=== PATIENT | male | born 1955 | race Caucasian/White ===

== ENCOUNTER → 2019-05-05 | Day surgery (SDC) | payer BC ==
--- NOTE | 2019-05-03 10:38 | NUR ---
CLARIFIED WITH IRMA SOLIMAN RN ABOUT WHEN TO STOP TAKING ASPIRIN 325MG PO DAILY. RICKI SOLIMAN RN STATED TO HOLD ASPIRIN UNTIL DAY AFTER PROCEDURE 05/06/19.
[2019-05-03 10:51] LABS: BASOPHILS # (AUTO) 0.1 (0.0-0.1); BASOPHILS % 1.3 % (0.0-1.0); EOSINOPHILS # (AUTO) 0.3 (0.0-0.4); EOSINOPHILS % 4.1 % (0.0-6.0); HEMATOCRIT 41.3 % (38.2-49.6); HEMOGLOBIN 13.4 g/dL (14.0-18.0); LYMPHOCYTES % 26.4 % (18.0-39.1); MEAN CORPUSCULAR HGB CONC 32.4 g/dL (31-35); MEAN CORPUSCULAR VOLUME 92.6 fL (81-99); MONOCYTES # (AUTO) 0.6 (0.2-0.8); MONOCYTES % 7.6 % (4.4-11.3); NEUTROPHILS # (AUTO) 4.6 (2.1-6.9); NEUTROPHILS % 60.1 % (38.7-80.0); PLATELET COUNT 268 x10e3/uL (140-360); RED BLOOD COUNT 4.46 x10e6/uL (4.3-5.7); RED CELL DISTRIBUTION WIDTH 13.2 % (11.7-14.4)
[2019-05-03 11:11] LABS: INR 0.84
[2019-05-03 11:15] LABS: ANION GAP 15.4 mmol/L (8-16); BLOOD UREA NITROGEN 12 mg/dL (7-26); BUN/CREATININE RATIO 12 (6-25); CALCIUM 9.7 mg/dL (8.4-10.2); CARBON DIOXIDE 27 mmol/L (22-29); CHLORIDE 103 mmol/L (98-107); EST GLOMERULAR FILTRATION RATE > 60 ML/MIN (60-); GLUCOSE 109 mg/dL (74-118); POTASSIUM 4.4 mmol/L (3.5-5.1); SODIUM 141 mmol/L (136-145)
[~2019-05-05] VITALS: Ht 185.4 cm; Wt 84.8 kg
[~2019-05-05] MED LIST: ALBUTEROL0.63 MG/3; AMIODARONE HCL200 MG PO; ASPIRIN325 MG PO; CIPRO500 MG PO; DILTIAZEM HCL120 MG PO; DOXYCYCLINE HY100 MG PO; LIDOCAINE HCL 2% LOCAL 20 ML VIAL ONE; LISINOPRIL10 MG PO; METOPROLOL TAR100 MG PO; SYMBICORT 16010.2 GM INH; VENTOLIN HFA18 GM INH; XARELTO20 MG PO
--- OUTSIDE RECORDS SUMMARY | 2019-05-05 06:32 | XMS REPORT | Continuity of Care Document ---
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 Phone urturn Information Layer[employer]ault Unavailable Unavailable Problems Problem Status Onset Date Classification Date Reported Comments Source History of hypertension 04/17/2019 Diagnosis 04/20/2019 [facility] Ex-smoker 04/17/2019 Diagnosis 04/20/2019 [facility] Dental abscess 04/17/2019 Diagnosis 04/20/2019 [facility] Hypertensive Disorder 04/17/2019 Problem 04/20/2019 [facility] Atrial Fibrillation 04/17/2019 Problem 04/20/2019 [facility] Chronic Obstructive Lung Disease 04/17/2019 Problem 04/20/2019 [facility] Tuberculosis screening 04/19/2017 Diagnosis 04/19/2017 [facility] Medications Medication Details Route Status Patient Instructions Ordering Provider Order Date Source 24 HR Diltiazem Hydrochloride 240 MG Extended Release Oral Capsule [Dilt] DILT-XR 240 mg capsule, extended release Active [facility] Lisinopril 20 MG Oral Tablet lisinopril 20 mg tablet Active [facility] Budesonide 0.16 MG/ACTUAT / formoterol fumarate 0.0045 MG/ACTUAT Metered Dose Inhaler Symbicort 160 mcg-4.5 mcg/actuation HFA aerosol inhaler Active [facility] Purified Protein Derivative of Tuberculin 50 UNT/ML Injectable Solution [Tubersol] Tubersol 5 tub. unit/0.1 mL intradermal injection solution Inject 0.1 mL by intradermal route. Active [facility] 200 ACTUAT Albuterol 0.09 MG/ACTUAT Metered Dose Inhaler [Ventolin] Ventolin HFA 90 mcg/actuation aerosol inhaler Active [facility] Amoxicillin 875 MG / Clavulanate 125 MG Oral Tablet [Augmentin] Augmentin 875 mg-125 mg tablet Take 1 tablet every 12 hours by oral route for 7 days. Active [facility] Ibuprofen 800 MG Oral Tablet ibuprofen 800 mg tablet Take 1 tablet 3 times a day by oral route for 7 days. Active [facility] [id number] 200 ACTUAT Albuterol 0.09 MG/ACTUAT Metered Dose Inhaler [Ventolin] Ventolin HFA 90 mcg/actuation aerosol inhaler Active [facility] Allergies, Adverse Reactions, Alerts No Known Medication Allergies Immunizations Immunization Date Given Site Status Last Updated Comments Source influenza, injectable, quadrivalent 06/29/2018 completed [facility] pneumococcal polysaccharide PPV23 03/29/2018 completed [facility] pneumococcal conjugate PCV 13 03/29/2017 completed [facility] influenza, injectable, quadrivalent 07/14/2016 completed [facility] Results No Data Provided for This Section Pathology Reports No Data Provided for This Section Diagnostic Reports No Data Provided for This Section Consultation Notes No Data Provided for This Section Discharge Summaries No Data Provided for This Section History and Physicals No Data Provided for This Section Vital Signs Vital Sign Value Date Comments Source Diastolic (mm Hg) 78 04/17/2019 [facility] Height 73 04/17/2019 [facility] Systolic (mm Hg) 141 04/17/2019 [facility] Weight 185 04/17/2019 [facility] Encounters Location Location Details Encounter Type Encounter Number Reason For Visit Attending Provider ADM Date DC Date Status Source [place] [facility] - [id number] NORAH GallardoP-C: [address] [place] [address], Ph. [id number] Gonzalez Pastrana 04/19/2017 [facility] [place] [facility] - [id number] NORAH PatinoP-C: [address] [place] [address], Ph. [id number] Dee Dee Escalante 04/17/2019 [facility] [place] [facility] - [id number] VIVI Patino-C: [address] [place] [address], Ph. [id number] Nkechinyere Orisakwe 04/17/2019 [facility] Procedures No Data Provided for This Section Assessment and Plan No Data Provided for This Section Plan of Care No Data Provided for This Section Social History No Data Provided for This Section Family History No Data Provided for This Section Advance Directives No Data Provided for This Section Functional Status No Data Provided for This Section
--- OUTSIDE RECORDS SUMMARY | 2019-05-05 06:32 | XMS REPORT | Encounter Summary ---
Author Organization Unknown Address [address] [place] [address] Phone [phone] Reason for Visit Screening - TB Instructions 1. Tuberculosis screening Tubersol 5 tub. unit/0.1 mL intradermal injection solution PPD (purified protein derivative), skin test - Patient was advised to follow-up with [facility] within 48-72 hours. Discussion Note: None recorded. Patient educational handouts: No information available. Plan of Care Patient Instructions RTC in 48-72 for reading. see vis handout for any questions. Reminders Provider Appointments None recorded. Lab PPD (Purified Protein Derivative), Skin Test 04/19/2017 [facility] Referral None recorded. Procedures None recorded. Surgeries None recorded. Imaging None recorded. Medications Name Start Date DILT-XR 240 mg capsule, extended release lisinopril 20 mg tablet Symbicort 160 mcg-4.5 mcg/actuation HFA aerosol inhaler Tubersol 5 tub. unit/0.1 mL intradermal injection solution Inject 0.1 mL by intradermal route. Ventolin HFA 90 mcg/actuation aerosol inhaler Medications Administered Name Date Tubersol 5 tub. unit/0.1 mL intradermal injection solution Inject 0.1 mL by intradermal route. [id number] Vitals None recorded. Lab Results None recorded. Allergies Code Code System Name Reaction Severity Onset NKDA Problems None recorded. Procedures None recorded. Vaccine List Vaccine Type influenza, injectable, quadrivalent 07/14/2016 Social History None recorded. Past Encounters 04/19/2017 Tuberculosis Screening VIVI Gallardo-C: [address] [place] [address], Ph. History of Present Illness Screening Request - TB Reported By: Patient Screening Request: BCG No prior BCG vaccination. PPD No past history of postive TB skin test (PPD), No previous severe local reaction to TB skin test (PPD). OTHER No prior vaccines within last month Review of Systems Screening - TB Reported By: Patient Symptoms during past year > 2 weeks, NOT associated with specific illness?: unexplained or low grade fever No fever. night sweats No night sweats. unexplained weight loss > 5 lbs No unexplained weight loss. persistent cough No persistent cough. shortness of breath No shortness of breath. coughing up blood (hemoptysis) No coughing up blood (hemoptysis). unusual fatigue No unusual fatigue. loss of appetite No loss of appetite. swollen neck glands No swollen neck glands Physical Exam Screening Reported By: Patient General Appearance: General: well-developed, well-nourished, no acute distress
--- OUTSIDE RECORDS SUMMARY | 2019-05-05 06:32 | XMS REPORT | Encounter Summary ---
Author Organization Unknown Address [address] [place] [address] Phone [phone] Reason for Visit Medical Complaint Instructions 1. Dental abscess abscessed tooth: care instructions Augmentin 875 mg-125 mg tablet ibuprofen 800 mg tablet 2. Ex-smoker COPD and asthma: care instructions 3. History of hypertension high blood pressure: care instructions Discussion Note: None recorded. Plan of Care Patient Instructions The most common causes of dental pain are tooth decay and gum disease. Pain can also be caused by an infection of the tooth (abscess) or the gums. Or you may have pain from a broken or cracked tooth. Other causes of pain include infection and damage to a tooth from nervous grinding of your teeth. A wisdom tooth can be painful when it is coming in but cannot break through the gum. It can also be painful when the tooth is only partway in and extra gum tissue has formed around it. The tissue can get inflamed (pericoronitis), and sometimes it gets infected. Prompt dental care can help find the cause of your toothache and keep the tooth from dying or gum disease from getting worse. Self-care at home may reduce your pain and discomfort. Follow-up care is a hendrickson part of your treatment and safety. Be sure to make and go to all appointments, and call your dentist or doctor if you are having problems. It's also a good idea to know your test results and keep a list of the medicines you take. How can you care for yourself at home? To reduce pain and facial swelling, put an ice or cold pack on the outside of your cheek for 10 to 20 minutes at a time. Put a thin cloth between the ice and your skin. Do not use heat. If your doctor prescribed antibiotics, take them as directed. Do not stop taking them just because you feel better. You need to take the full course of antibiotics. Ask your doctor if you can take an mlep-ejw-dpcbenw pain medicine, such as acetaminophen (Tylenol), ibuprofen (Advil, Motrin), or naproxen (Aleve). Be safe with medicines. Read and follow all instructions on the label. Avoid very hot, cold, or sweet foods and drinks if they increase your pain. Rinse your mouth with warm salt water every 2 hours to help relieve pain and swelling. Mix 1 teaspoon of salt in 8 ounces of water. Talk to your dentist about using special toothpaste for sensitive teeth. To reduce pain on contact with heat or cold or when brushing, brush with this toothpaste regularly or rub a small amount of the paste on the sensitive area with a clean finger 2 or 3 times a day. Floss gently between your teeth. Do not smoke or use spit tobacco. Tobacco use can make gum problems worse, decreases your ability to fight infection in your gums, and delays healing. If you need help quitting, talk to your doctor about stop-smoking programs and medicines. These can increase your chances of quitting for good. When should you call for help? Call 911 anytime you think you may need emergency care. For example, call if: You have trouble breathing. Call your dentist or doctor now or seek immediate medical care if: You have signs of infection, such as: Increased pain, swelling, warmth, or redness. Red streaks leading from the area. Pus draining from the area. A fever. Watch closely for changes in your health, and be sure to contact your doctor if: You do not get better as expected. Reminders Provider Appointments None recorded. Lab None recorded. Referral None recorded. Procedures None recorded. Surgeries None recorded. Imaging None recorded. Medications Name Start Date Augmentin 875 mg-125 mg tablet Take 1 tablet every 12 hours by oral route for 7 days. DILT-XR 240 mg capsule, extended release ibuprofen 800 mg tablet Take 1 tablet 3 times a day by oral route for 7 days. lisinopril 20 mg tablet Symbicort 160 mcg-4.5 mcg/actuation HFA aerosol inhaler Tubersol 5 tub. unit/0.1 mL intradermal injection solution Inject 0.1 mL by intradermal route. Ventolin HFA 90 mcg/actuation aerosol inhaler Medications Administered None recorded. Vitals Height Weight BMI Blood Pressure 6 ft 1 in 185 lbs 24.4 kg/m2 (1) 140/82 mm[Hg] (2) 141/78 mm[Hg] Lab Results None recorded. Allergies Code Code System Name Reaction Severity Status Onset NKDA Problems Name Status Onset Date Source Hypertensive Disorder Active 04/17/2019 Atrial Fibrillation Active 04/17/2019 Chronic Obstructive Lung Disease Active 04/17/2019 Procedures None recorded. Vaccine List Vaccine Type influenza, injectable, quadrivalent 07/14/2016 06/29/2018 pneumococcal conjugate PCV 13 03/29/2017 pneumococcal polysaccharide PPV23 03/29/2018 Social History None recorded. Past Encounters 04/17/2019 Dental Abscess; Ex-smoker; History of Hypertension V[facility] Patino-[facility]: [address] [place] [address], Ph. History of Present Illness Throat-Oral Complaint Reported By: Patient HPI: Location: dental. Duration: 1 days. Context: no sick contacts, no foreign travel, smoker, COPD. Modifying factors: OTC medication. Associated Symptoms: no fever, no headache, no body aches, no sputum production, no shortness of breath, no wheezing, no change in number of pillows needed to sleep at night, no sweats, no significant weight gain, no significant weight loss, no morning cough, no sore throat, no vomiting, no diarrhea, no rash, no nausea Review of Systems:ROS as noted in the HPI Review of Systems Basic Reported By: Patient Physical Exam Adult Basic, Adult Male Complete Reported By: Patient Constitutional: General Appearance: healthy-appearing, well-nourished, well-developed. Level of Distress: NAD. Ambulation: ambulating normally Psychiatric: Mental Status: active and alert. Orientation: to time, to place, to person Inj-Zxgv-Ikiut-Throat: Hearing: no hearing loss. Nose: no lesions on external nose, nares patent, no septal deviation, nasal passages clear, no sinus tenderness, no nasal discharge. Lips, Teeth, and Gums: no mouth or lip ulcers, no bleeding gums, poor dentition; swelling and tenderness to right side of mouth and face. Oropharynx: moist mucous membranes, no erythema, no exudates, tonsils not enlarged Lungs: Respiratory effort: no dyspnea, no tachypnea, no use of accessory muscles, no intercostal retractions. Auscultation: breath sounds normal, good air movement Cardiovascular: Heart Auscultation: no murmurs, regularly irregular
--- OUTSIDE RECORDS SUMMARY | 2019-05-05 06:32 | XMS REPORT ---
Author [facility] Address Unknown Phone Unavailable Care Team Providers Care Nsh Teacher Name Role Phone Unavailable Unavailable Payers Payer Name Policy Type Policy Number Effective Date Expiration Date Problems This patient has no known problems. Allergies, Adverse Reactions, Alerts Allergy Name Allergy Type Status Severity Reaction(s) Onset Date Inactive Date Treating Clinician Comments No Known Allergies DA Active U 2015-08-27 00:00:00 Medications This patient has no known medications.
--- OUTSIDE RECORDS SUMMARY | 2019-05-05 06:32 | XMS REPORT | Encounter Summary ---
Author Organization Unknown Address [address] [place] [address] Phone [phone] Reason for Visit Medical Complaint Instructions 1. [...] your doctor if you can take an fvkl-htj-leuotqv pain medicine, such as acetaminophen (Tylenol), ibuprofen [...] Ex-smoker; History of Hypertension VIVI Patino-C: [address] [place] [address], Ph. History of Present Illness Throat-Oral Complaint [...] Orientation: to time, to place, to person Nbk-Ioum-Tdsgc-Throat: Hearing: no hearing loss. Nose: no lesions [...]
[2019-05-05 06:54] VITALS: BP 116/69
--- NOTE | 2019-05-05 07:53 | NUR ---
Procedure note- 0715-MD arrives 0720-Patient prepped and draped in a sterile fashion. 0721-Time out performed with all participating staff and patient. All agree. 0725-approx 15mL of 2% Lidocaine injected to numb site. 0728-Incision 0730-Device deployed 0731-DermaBond 0735-Dressing applied-telfa covered by tegaderm. Device programmed and bedside monitor programmed. VSS and denies pain. 136/74, HR 59,R 16, Sat 98%. Discharge instructions gone over with patient. Denied any further questions.
--- NOTE | 2019-05-05 14:05 | Operative Report ---
DATE OF PROCEDURE: SURGEON: Stefano Ghosh MD PROCEDURE: Loop recorder insertion. INDICATION: Paroxysmal atrial fibrillation. COMPLICATIONS: None. ANESTHESIA: Versed, fentanyl, and lidocaine. TECHNIQUE: The patient's left subclavicular area was draped and prepped in the usual fashion. The area was anesthetized with lidocaine. The implantable loop recorder was inserted without difficulty. There were no complications. CONCLUSION: Successful implantation of loop recorder. Stefano Ghosh MD DSH/MODL /[id number]
== END | disposition home or self-care (01) ==
LOC: CATH LAB 06:23
PROVIDERS: ATTEND Internal Medicine Cardiovascular Disease
DX: I48.0 Paroxysmal atrial fibrillation (principal); I10 Essential (primary) hypertension; Z01.810 Encounter for preprocedural cardiovascular examination; Z01.812 Encounter for preprocedural laboratory examination
CPT/HCPCS: 33285; 36415; 80048; 85025; 85610; 93005; C1764; J2001

== ENCOUNTER → 2022-10-17 | Outpatient (CLI) | payer MEDICARE, BC ==
[~2022-10-17] MED LIST changes: -LIDOCAINE HCL 2% LOCAL 20 ML VIAL ONE
== END ==
LOC: RAD 14:34
PROVIDERS: ATTEND Internal Medicine Critical Care Medicine
DX: J44.9 Chronic obstructive pulmonary disease, unspecified (principal)
CPT/HCPCS: 71046

== ENCOUNTER 2025-03-10 12:47 | Inpatient (IN) | payer MEDICARE, BC ==
[~2025-03-10] VITALS: Ht 185.4 cm; Wt 70.8 kg
[2025-03-10 17:19] VITALS: BP 133/39; PULSE 55; RESP 18; TEMP 97.5; O2SAT 97
[2025-03-10] MEDS ORDERED: HYDRALAZINE HCL 20 MG/ML VIAL IV PRN (17:30)
[2025-03-10] MEDS ORDERED: ALBUTEROL/IPRATROPIUM 3 ML NEB NEB PRN (17:30)
[2025-03-10] MEDS ORDERED: ACETAMINOPHEN 325 MG TAB PO PRN (17:30)
[2025-03-10 17:31] LABS: BASOPHILS # (AUTO) 0.1 (0.0-0.1); BASOPHILS % 0.8 % (0.0-1.0); EOSINOPHILS # (AUTO) 0.1 (0.0-0.4); EOSINOPHILS % 1.4 % (0.0-6.0); HEMATOCRIT 35.9 % (38.2-49.6); HEMOGLOBIN 11.7 g/dL (14.0-18.0); LYMPHOCYTES # (AUTO) 2.1 (1.0-3.2); LYMPHOCYTES % 27.4 % (18.0-39.1); MEAN CORPUSCULAR HEMOGLOBIN 29.6 pg (28-32); MEAN CORPUSCULAR HGB CONC 32.6 g/dL (31-35); MEAN CORPUSCULAR VOLUME 90.9 fL (81-99); MONOCYTES # (AUTO) 0.5 (0.2-0.8); MONOCYTES % 6.8 % (4.4-11.3); NEUTROPHILS # (AUTO) 4.9 (2.1-6.9); NEUTROPHILS % 63.2 % (38.7-80.0); PLATELET COUNT 207 x10e3/uL (140-360); RED BLOOD COUNT 3.95 x10e6/uL (4.3-5.7); RED CELL DISTRIBUTION WIDTH 13.8 % (11.7-14.4)
[2025-03-10] MEDS ORDERED: VIT D PO (17:51)
[2025-03-10] MEDS ORDERED: B12 SL (17:51)
[2025-03-10 18:01] LABS: ALBUMIN/GLOBULIN RATIO 1.3 (0.8-2.0); ANION GAP 17.7 mmol/L (8-16); BILIRUBIN,TOTAL 0.7 mg/dL (0.2-1.2); CALCIUM 8.9 mg/dL (8.4-10.2); CREATININE, SERUM 2.22 mg/dL (0.72-1.25); POTASSIUM 3.7 mmol/L (3.5-5.1)
[2025-03-10 18:21] LABS: BILIRUBIN,URINE NEGATIVE (NEGATIVE); CLARITY,URINE SL CLOUDY (CLEAR); COLOR,URINE YELLOW (YELLOW); GLUCOSE, URINE NEGATIVE (NEGATIVE); KETONES,URINE NEGATIVE (NEGATIVE); LEUKOCYTE ESTERASE ,URINE NEGATIVE (NEGATIVE); NITRITE,URINE NEGATIVE (NEGATIVE); PH,URINE 6 (5 - 7); PROTEIN,URINE DIPSTICK NEGATIVE (NEGATIVE); URINE UROBILINOGEN 0.2 mg/dL (0.2 - 1)
[2025-03-10 18:30] LABS: BACTERIA,URINE FEW /HPF; EPITHELIAL CELLS,URINE FEW /LPF; RBC,URINE 0-5 /HPF (0-5)
[2025-03-10] MEDS: SODIUM CHLORIDE 0.9% 1000ML 1,000 ML IV SCH (18:35)
[2025-03-10 18:40] VITALS: BP 133/39; PULSE 55; RESP 18; TEMP 97.5; O2SAT 97
[2025-03-10 18:48] LABS: CREATININE,URINE RANDOM 140.11 mg/dL (63-166); SODIUM,URINE 77 mmol/L; TOTAL PROTEIN, URINE 12.2 mg/dL (1-14)
[2025-03-10 19:07] VITALS: BP 133/39; PULSE 55; RESP 18; TEMP 97.5; O2SAT 97
[2025-03-10 19:15] LABS: WBC,FECAL (FECAL LACTOFERRIN) NEGATIVE (NEGATIVE)
[2025-03-10 19:29] LABS: CDIFF AG QUIK CHEK NEGATIVE (NEGATIVE); CDIFF TOX QUIK CHEK NEGATIVE (NEGATIVE)
[2025-03-10 20:00] VITALS: BP 114/58; PULSE 52; RESP 20; TEMP 97.4; O2SAT 97
[2025-03-10 22:19] VITALS: BP 114/58; PULSE 52; RESP 20; TEMP 97.7; O2SAT 97
[2025-03-11] VITALS (12 sets, daily range): BP systolic 101–121; BP diastolic 46–67; PULSE 48–85; RESP 18–20; TEMP 97.7–98.4; O2SAT 96–100
[2025-03-11 06:07] LABS: ALBUMIN 3.5 g/dL (3.5-5.0); ALBUMIN/GLOBULIN RATIO 1.3 (0.8-2.0); ANION GAP 13.9 mmol/L (8-16); BILIRUBIN,TOTAL 0.9 mg/dL (0.2-1.2); CALCIUM 8.6 mg/dL (8.4-10.2); CREATININE, SERUM 2.03 mg/dL (0.72-1.25); MAGNESIUM 2.8 MG/DL (1.3-2.1); PHOSPHORUS 3.9 MG/DL (2.3-4.7); POTASSIUM 3.9 mmol/L (3.5-5.1); TOTAL PROTEIN 6.1 g/dL (6.5-8.1)
[2025-03-11 06:21] LABS: BASOPHILS # (AUTO) 0.1 (0.0-0.1); BASOPHILS % 1.4 % (0.0-1.0); EOSINOPHILS # (AUTO) 0.1 (0.0-0.4); EOSINOPHILS % 2.2 % (0.0-6.0); HEMATOCRIT 33.8 % (38.2-49.6); HEMOGLOBIN 10.9 g/dL (14.0-18.0); LYMPHOCYTES # (AUTO) 2.1 (1.0-3.2); LYMPHOCYTES % 34.2 % (18.0-39.1); MEAN CORPUSCULAR HEMOGLOBIN 29.7 pg (28-32); MEAN CORPUSCULAR HGB CONC 32.2 g/dL (31-35); MEAN CORPUSCULAR VOLUME 92.1 fL (81-99); MONOCYTES # (AUTO) 0.6 (0.2-0.8); MONOCYTES % 9.3 % (4.4-11.3); NEUTROPHILS # (AUTO) 3.3 (2.1-6.9); NEUTROPHILS % 52.4 % (38.7-80.0); PLATELET COUNT 208 x10e3/uL (140-360); RED BLOOD COUNT 3.67 x10e6/uL (4.3-5.7); RED CELL DISTRIBUTION WIDTH 13.7 % (11.7-14.4); WHITE BLOOD COUNT 6.23 x10e3/uL (4.8-10.8)
[2025-03-11 06:30] LABS: CHOL/HDL RATIO 3.4 (3.9-4.7)
[2025-03-11 06:47] LABS: FERRITIN 62.36 ng/mL (21.81-274.66)
[2025-03-11 06:50] LABS: THYROID STIMULATING HORMONE 1.953 uIU/mL (0.350-4.940)
[2025-03-11 08:12] LABS: CALCIUM 8.4 mg/dL (8.6-10.2)
[2025-03-11] MEDS: ASPIRIN 325 MG TAB PO SCH (08:49)
[2025-03-11] MEDS: DILTIAZEM HCL ER 120 MG CAP PO SCH (08:50)
[2025-03-11] MEDS: RIVAROXABAN 20 MG TABLET PO SCH (08:50)
[2025-03-11] MEDS: RIFAXIMIN 550 MG TABLET PO SCH (14:06)
[2025-03-11] MEDS: LOPERAMIDE HCL 2 MG CAP PO PRN (14:06)
[2025-03-11] MEDS: TAMSULOSIN HCL 0.4 MG CAP PO SCH (20:59)
[2025-03-12 02:54] VITALS: BP 105/46; PULSE 59; RESP 18; TEMP 98.3; O2SAT 95
[2025-03-12 06:09] VITALS: PULSE 70; RESP 21; O2SAT 98
[2025-03-12 06:49] LABS: BASOPHILS # (AUTO) 0.1 (0.0-0.1); EOSINOPHILS # (AUTO) 0.1 (0.0-0.4); EOSINOPHILS % 2.1 % (0.0-6.0); HEMATOCRIT 29.5 % (38.2-49.6); HEMOGLOBIN 9.4 g/dL (14.0-18.0); LYMPHOCYTES # (AUTO) 1.7 (1.0-3.2); LYMPHOCYTES % 30.2 % (18.0-39.1); MEAN CORPUSCULAR HEMOGLOBIN 29.8 pg (28-32); MEAN CORPUSCULAR HGB CONC 31.9 g/dL (31-35); MEAN CORPUSCULAR VOLUME 93.7 fL (81-99); MONOCYTES # (AUTO) 0.6 (0.2-0.8); MONOCYTES % 9.9 % (4.4-11.3); NEUTROPHILS # (AUTO) 3.3 (2.1-6.9); NEUTROPHILS % 56.5 % (38.7-80.0); PLATELET COUNT 159 x10e3/uL (140-360); RED BLOOD COUNT 3.15 x10e6/uL (4.3-5.7); RED CELL DISTRIBUTION WIDTH 13.9 % (11.7-14.4); WHITE BLOOD COUNT 5.76 x10e3/uL (4.8-10.8)
[2025-03-12 07:21] LABS: ALBUMIN/GLOBULIN RATIO 1.5 (0.8-2.0); ANION GAP 11.8 mmol/L (8-16); BILIRUBIN,TOTAL 0.4 mg/dL (0.2-1.2); CALCIUM 7.9 mg/dL (8.4-10.2); CREATININE, SERUM 1.71 mg/dL (0.72-1.25); MAGNESIUM 2.3 MG/DL (1.3-2.1); POTASSIUM 3.8 mmol/L (3.5-5.1)
[2025-03-12 08:49] VITALS: BP 111/58; PULSE 63; RESP 18; TEMP 97.8; O2SAT 100
[2025-03-12 09:00] VITALS: BP 111/58; PULSE 63; RESP 18; TEMP 97.8; O2SAT 100
[2025-03-12] MEDS ORDERED: XIFAXAN550 MG PO (10:43)
[2025-03-12] MEDS ORDERED: IMODIUM2 MG PO (10:43)
[2025-03-12] MEDS ORDERED: FLOMAX0.4 MG PO (10:43)
[2025-03-16 08:12] LABS: ENDOMYSIAL ANTIBODIES, IGA Negative (Negative)
[2025-03-16 08:34] LABS: IMMUNOGLOBULIN A 79 mg/dL (61-437); TISSUE TRANSGLUTAMINASE IGA AB <2 U/mL (0-3)
== END 2025-03-12 11:45 | disposition home or self-care (01) | DRG 641 ==
LOC: MED/SURG 12:47
PROVIDERS: ADMIT Internal Medicine; ATTEND Internal Medicine
DX: E86.0 Dehydration (principal); N17.9 Acute kidney failure, unspecified; K58.0 Irritable bowel syndrome with diarrhea; A08.8 Other specified intestinal infections; I11.9 Hypertensive heart disease without heart failure; I48.91 Unspecified atrial fibrillation; Z79.01 Long term (current) use of anticoagulants; J44.9 Chronic obstructive pulmonary disease, unspecified; F17.210 Nicotine dependence, cigarettes, uncomplicated; N40.0 Benign prostatic hyperplasia without lower urinary tract symptoms; Z79.899 Other long term (current) drug therapy; Z79.82 Long term (current) use of aspirin
CPT/HCPCS: 36415; 74176; 76770; 80053; 80061; 81001; 81015; 82044; 82570; 82607; 82728; 82746; 82784; 83036; 83516; 83540; 83630; 83735; 83970; 83993; 84100; 84156; 84300; 84443; 84466; 84550; 85025; 86256; 87045; 87177; 87324; 87328; 87449; 93005; 94799; J7030